=== PATIENT | male | born 1955 | race Caucasian/White ===

== ENCOUNTER → 2016-05-25 | Outpatient (CLI) | payer OTHER | LOC: KOH-I 05-16 16:15 | DX: M25.561 Pain in right knee (principal); M94.261 Chondromalacia, right knee; M95.8 Other specified acquired deformities of musculoskeletal system; R60.0 Localized edema; M25.461 Effusion, right knee; Z88.2 Allergy status to sulfonamides | CPT/HCPCS: 73721 ==